=== PATIENT | male | born 1970 | race Caucasian/White ===

== ENCOUNTER → 2022-11-08 08:25 | Outpatient (CLI) | payer OTHER, SELFPAY ==
[2022-11-08 08:53] LABS: Add Manual Diff / Slide Review NO; Basophils Absolute Auto 0 /uL (0-100); Basophils Percent Auto 0.8 % (0-2); Eosinophils Absolute Auto 200 /uL (0-450); Hematocrit 45.8 % (41-53); Hemoglobin 15.7 g/dL (13.5-17.5); Lymphocytes Absolute Auto 1600 /uL (1100-4500); Lymphocytes Percent Auto 33.3 % (25-40); Mean Corpuscular HGB Conc 34.4 % (30-36); Mean Corpuscular Hemoglobin 30.6 PG (26-34); Mean Corpuscular Volume 89.2 fL (80-100); Monocytes Absolute Auto 300 /uL (0-900); Monocytes Percent Auto 7.1 % (3-14); Neutrophils Absolute Auto 2600 /uL (1500-7000); Neutrophils Percent Auto 53.8 % (50-75); Platelet Count 170 X10^3/uL (150-400); Red Blood Cell Count 5.14 X10^6/uL (4.5-5.9); Red Cell Distribution Width 13.3 % (11.6-14.8); White Blood Cell Count 4.8 X10^3/uL (4.5-11.0)
[2022-11-08 09:19] LABS: Alanine Aminotransferase 40 IU/L (<50); Albumin 4.3 g/dL (3.5-5.0); Albumin Globulin Ratio 1.4 (1.0-2.8); Alkaline Phosphatase 51 U/L (38-126); Aspartate Aminotransferase 37 IU/L (17-59); BUN Creatinine Ratio 17.3 (6-22); Bilirubin Total 0.8 mg/dL (0.2-1.3); Blood Urea Nitrogen 14 mg/dL (9-20); Carbon Dioxide 28 mmol/L (22-32); Chloride 104 mmol/L (98-107); Cholesterol 226 mg/dL (140-199); Estimated Glomerular Filt Rate > 60 mL/min (>60); Globulin 3.1 g/dL (1.7-4.1); Glucose 94 mg/dL (70-100); HDL Cholesterol 56 mg/dL (40-60); HEMOLYSIS < 15 (0-50); LDL Cholesterol Calculated 157 mg/dL (<100); Potassium 4.3 mmol/L (3.4-5.1); Sodium 139 mmol/L (137-145); Total Protein 7.4 g/dL (6.3-8.2); Triglycerides 67 mg/dL (35-150)
[2022-11-08 09:33] LABS: Free T4, Direct Thyroxine 1.07 ng/dL (0.78-2.19)
[2022-11-08 09:46] LABS: Prostate Specific Antigen 0.975 ng/mL (0.10-4.00)
[2022-11-08 09:48] LABS: Thyroid Stimulating Hormone 1.08 uIU/mL (0.47-4.68)
== END ==
PROVIDERS: PCP Family Medicine; Referring Provider Family Medicine; Visit Provider Family Medicine
DX: Z12.5 Encounter for screening for malignant neoplasm of prostate (principal); Z13.228 Encounter for screening for other metabolic disorders; Z13.29 Encounter for screening for other suspected endocrine disorder; Z13.6 Encounter for screening for cardiovascular disorders; Z13.9 Encounter for screening, unspecified
CPT/HCPCS: 36415; 80053; 80061; 84153; 84439; 84443; 85025

== ENCOUNTER → 2023-05-29 08:31 | Outpatient (CLI) | payer OTHER, SELFPAY ==
[2023-05-29 09:39] LABS: Cholesterol 225 mg/dL (140-199); HDL Cholesterol 64 mg/dL (40-60); LDL Cholesterol Calculated 147 mg/dL (<100); Triglycerides 72 mg/dL (35-150)
== END ==
PROVIDERS: PCP Family Medicine; Referring Provider Family Medicine; Visit Provider Family Medicine
DX: Z00.01 Encounter for general adult medical examination with abnormal findings (principal); E78.00 Pure hypercholesterolemia, unspecified
CPT/HCPCS: 36415; 80061

== ENCOUNTER 2023-06-15 07:34 | Day surgery (SDC) | payer OTHER, SELFPAY ==
--- NOTE | 2023-06-15 | PATH_ITS ---
[facility] Accession Number: [id number] No. of containers..01 Tissue . 01 Material submitted: . colon - CECAL POLYP . 01 Diagnosis: Cecal Polyp: Tubular adenoma. MRV 06/28/2023 1537 Local . 01 Electronically signed: . Shar Keller MD, PhD, Pathologist NPI- [id number] . 01 Gross description: . The specimen is received in formalin, labeled with the patient's name, , and cecal polyp, and consists of a single fontanez, soft tissue fragment measuring 0.9 cm in greatest dimension. Submitted entirely in cassette A1. ([id number]) /FRR 06/17/2023 1931 Local . 01 Pathologist provided ICD-10: D12.0 . 01 CPT . 076385 Specimen Comment: A courtesy copy of this report has been sent to [phone] Performed at: 01 [facility] [address] [place] [address], [place], [place] [id number] MD Poli Herman MD Phone: [phone]
[2023-06-15] MEDS: LACTATED RINGERS 1,000 ML 42 ML IV (07:44)
[2023-06-15 08:03] VITALS: BP 141/76; PULSE 65; RESP 16; TEMP 36.2; O2SAT 100; BMI 23.9
--- NOTE | 2023-06-15 08:46 | P.HP_ITS ---
History of Present Illness History of Present Illness Date Patient Seen: 06/15/23 Time Patient Seen: 08:46 Chief complaint: SDC Narrative: Jose Henriquez is a 52-year-old man who is here for a colonoscopy. He has never had 1 before. No family history of colon cancer. He believes he has an external hemorrhoid which is occasionally irritating. [facility] Medical History Inguinal pain of both sides Wears glasses Hyperlipidemia Encounter for well adult exam with abnormal findings Surgical History Joint infection (~09/2022) Family History Father Hypertension Hyperlipidemia Mother Cancer Grandfather Stroke Grandmother Cancer Social History household members: spouse Smoking Status: Never smoker Meds Home Medications and Allergies Home Medications Medication Instructions Recorded Confirmed Type No Known Home Medications 05/30/23 06/15/23 History Allergies Allergy/AdvReac Type Severity Reaction Status Date / Time PENICILLIN Allergy Unknown Uncoded 06/15/23 07:24 Exam Vital Signs (past 8 hours): - 06/15/23 08:03 Temperature 97.1 F L Pulse Rate 65 Respiratory Rate 16 Blood Pressure 141/76 H Pulse Oximetry 100 Oxygen Delivery Method Room Air Oxygen Delivery Method Room Air Const General: healthy appearing Assessment & Plan Assessment and plan (1) Colon cancer screening: Status: Acute Plan We reviewed the risks and benefits of colonoscopy for colon cancer screening and he would like to proceed.
--- NOTE | 2023-06-15 09:16 | PM.OP.COLON ---
Operative Date/Time/Diagnoses Date of procedure: 06/15/23 Time of procedure: 09:17 Pre-op diagnosis: Colonoscopy Post-op diagnosis: same Procedure & Clinicians Study performed: Colonoscopy Same procedure as scheduled: Yes Surgeon: Kwaku Arciniega Procedure Notes Procedure in detail: Surgeon: Kwaku Arciniega MD Anesthesia: Shakila Ramirez CRNA Procedure: The patient was brought to the endoscopy suite, placed in left lateral decubitus position. The patient was connected to monitoring devices. A time-out was performed. Sedation was administered. Once the patient was adequately sedated, a digital rectal exam was performed and 1 non thrombosed external hemorrhoid was noted. The scope was then inserted and advanced to the cecum where the appendiceal orifice was identified and photographed. The scope was then slowly withdrawn over greater than 6 minutes. The mucosa was thoroughly inspected. There was a 6 mm polyp in the cecum removed with a cold snare. No other abnormalities were seen. The scope was retroflexed in the rectum. Some mild internal hemorrhoids were noted. The scope was straightened and removed. The patient was awakened and brought to recovery. Scope withdrawal time: 8 minutes Sedation time: 14 minutes EBL: 3 mL Findings: External hemorrhoid and 6 mm cecal polyp Post-procedure Disposition: PACU
[2023-06-15 09:20] VITALS: BP 126/76; PULSE 57; RESP 19; TEMP 36.6; O2SAT 97
[2023-06-15 09:38] VITALS: BP 140/70; PULSE 65; RESP 16; TEMP 36.2; O2SAT 98
[2023-06-15 10:00] VITALS: BP 138/79; PULSE 64; RESP 18; O2SAT 98
== END 2023-06-15 10:24 | disposition home or self-care (01) ==
PROVIDERS: PCP Family Medicine; Referring Provider Surgery; Visit Provider Surgery
PROC: 0DJD8ZZ Inspection of Lower Intestinal Tract, Via Natural or Artificial Opening Endoscopic (ICD-10-PCS; CPT 45378; principal; 2023-06-15 08:45)
DX: Z12.11 Encounter for screening for malignant neoplasm of colon (principal); K64.8 Other hemorrhoids; D12.0 Benign neoplasm of cecum
CPT/HCPCS: 45385; J2704

== ENCOUNTER → 2023-09-19 07:30 | Outpatient (CLI) | payer OTHER, SELFPAY ==
[2023-09-19 08:32] LABS: Alanine Aminotransferase 45 IU/L (<50); Albumin 4.3 g/dL (3.5-5.0); Albumin Globulin Ratio 1.6 (1.0-2.8); Alkaline Phosphatase 46 U/L (38-126); Aspartate Aminotransferase 37 IU/L (17-59); BUN Creatinine Ratio 15.6 (6-22); Bilirubin Total 0.8 mg/dL (0.2-1.3); Blood Urea Nitrogen 12 mg/dL (9-20); Calcium 9.7 mg/dL (8.4-10.2); Carbon Dioxide 27 mmol/L (22-32); Chloride 105 mmol/L (98-107); Cholesterol 173 mg/dL (140-199); Estimated Glomerular Filt Rate > 60 mL/min (>60); Globulin 2.7 g/dL (1.7-4.1); Glucose 101 mg/dL (70-100); HDL Cholesterol 58 mg/dL (40-60); HEMOLYSIS < 15 (0-50); LDL Cholesterol Calculated 98 mg/dL (<100); Potassium 4.2 mmol/L (3.4-5.1); Sodium 141 mmol/L (137-145); Triglycerides 85 mg/dL (35-150)
== END ==
PROVIDERS: PCP Family Medicine; Referring Provider Family Medicine; Visit Provider Family Medicine
DX: Z00.01 Encounter for general adult medical examination with abnormal findings (principal); E78.00 Pure hypercholesterolemia, unspecified
CPT/HCPCS: 36415; 80053; 80061

== ENCOUNTER → 2024-12-09 06:54 | Outpatient (CLI) | payer BC, SELFPAY ==
[2024-12-09 08:13] LABS: Alanine Aminotransferase 62 IU/L (<50); Albumin 4.7 g/dL (3.5-5.0); Alkaline Phosphatase 50 U/L (38-126); Aspartate Aminotransferase 50 IU/L (17-59); BUN Creatinine Ratio 16.7 (6-22); Bilirubin Total 0.8 mg/dL (0.2-1.3); Blood Urea Nitrogen 14 mg/dL (9-20); Calcium 9.7 mg/dL (8.4-10.2); Carbon Dioxide 27 mmol/L (22-32); Chloride 105 mmol/L (98-107); Cholesterol 185 mg/dL (140-199); Estimated Glomerular Filt Rate > 60 mL/min (>60); Globulin 2.3 g/dL (1.7-4.1); Glucose 98 mg/dL (70-99); HDL Cholesterol 53 mg/dL (40-60); HEMOLYSIS < 15 (0-50); LDL Cholesterol Calculated 108 mg/dL (<100); Potassium 5.1 mmol/L (3.4-5.1); Sodium 139 mmol/L (137-145); Triglycerides 118 mg/dL (35-150)
[2024-12-09 08:44] LABS: Prostate Specific Antigen Scrn 1.19 ng/mL (0.1-4.0)
== END ==
PROVIDERS: PCP Family Medicine; Referring Provider Family Medicine; Visit Provider Family Medicine
DX: R73.9 Hyperglycemia, unspecified (principal); E78.00 Pure hypercholesterolemia, unspecified; Z12.5 Encounter for screening for malignant neoplasm of prostate
CPT/HCPCS: 36415; 80053; 80061; G0103